=== PATIENT | female | born 1995 | race Caucasian/White ===

== ENCOUNTER → 2016-07-01 | Outpatient (CLI) | payer BC ==
--- NOTE | 2016-07-01 17:57 | US ---
July 01, [address] Dorman, Thank you for allowing us to see your patient Sneha Test for growth and completion of taz aren evaluation. As you know, she is a 20-year-old 1. Her due date is 10/19/2016 based on 13- week ultrasound. Her current gestational age based on this dating is 24 weeks 2 days. Her history i s significant for type 1 diabetes mellitus managed with an insulin pump. ULTRASOUND: Number of fetuses: 1 Placental location: anterior, no previa presentation: cephalic Heart Rate: 150 bpm Cervix: 4.2 cm viewed transabdominally Maximum vertical pocket: 6 cm Measurements: Biparietal diameter: 62 mm 25 weeks, 1 days Head circumference: 236 mm 25 weeks, 5 days Abdominal circumference: 204 mm 25 weeks, 1 days Femur length: 44 mm 24 weeks, 5 days Humerus length: 39 mm 24 weeks, 1 days Transcerebellar diameter: 29 mm 25 weeks, 2 days Average ultrasound age: 25 weeks, 2 days Estimated weight: 749 gm weight percentile: 70 % ANATOMY anatomy was previously assessed. Today the following structures were visualized and appeared n ormal: supratentorial brain, posterior fossa, cisterna magna measuring 7.7 mm, spine, profile, 4-maría mber heart view, superior and inferior vena cava, stomach, bilateral kidneys, bladder. IMPRESSION: 1. Intrauterine at 24 weeks, 2 days; KINSEY of 10/19/2016. 2. growth is appropriate size for dates. 3. anatomy was previously assessed and today's ultrasound continues to provide reassurance of normal appearing anatomy. 4. Type 1 diabetes mellitus. See previously noted recommendations for . RECOMMENDATIONS: Sneha has her echo scheduled on 08/03/16. Recommend follow-up growth ultrasound in 4 weeks. Thank you for allowing us the opportunity to evaluate your patient. Should you have any further ques tions or concerns please do not hesitate to contact me. Approximately 15 minutes were spent with the patient, of which 8 minutes were spent in [id number] c onsultation discussing diabetes in and growth and anatomy. Jessica Mobley M.D., Ph.D. Diagnosis Department of Obstetrics and Gynecology [facility] [place], [place]
--- NOTE | 2016-07-01 18:51 | US ---
Obstetrical Sonogram Detail Clinical Indications: Evaluate growth and development with comparison to the prior study May. The is complicated by insulin-dependent diabetes. Technique: Longitudinal and transverse images are obtained. Dr. Mobley was present for the examinatio n. Color Doppler evaluation is employed for assessment of vascularity. Findings: A single fetus is present in vertex presentation. Maternal cervical length is estimated at 4.2 cm. T he amount of amniotic fluid is normal with an MVP of 6.0 cm. The placenta is located anterior with no placenta previa.. A three-vessel cord has been previously documented with a central insertion on t he placenta. motion is identified. cardiac activity is documented with a heart rate estimated at 150 b eats per minute. A full anatomic scan has been performed previously. On examination today a four-anthony amandeep heart view is obtained. stomach, kidneys and bladder are normal. supratentorial brain , posterior fossa and spinal profile appear normal. No abnormality is identified. biometry: Biparietal diameter = 62 mm = 25 weeks 1 day Head circumference = 236 mm = 25 weeks 5 days Abdominal circumference = 204 mm = 25 weeks 1 day Femur length = 44 mm = 24 weeks 5 days Estimated weight 749 +/- 109 grams. This is at the 70th percentile based on last menstrual yamila od. The estimated delivery date by ultrasound is October 12, 2016. This compares to the clinical date of October. There has been appropriate interval growth. Impression: Single live intrauterine gestation with estimated age by ultrasound of 25 weeks 2 days with an estima jesu delivery date of October 12, 2016. The estimated age by clinical date is 24 weeks 2 days. No abnormality is identified. A full anatomic scan has been performed previously. Please see Dr. Mobley report for findings and recommendations.
== END ==
LOC: FIMAGING 13:33
PROVIDERS: ATTEND Student in an Organized Health Care Education/Training Program
DX: O24.012 Pre-existing type 1 diabetes mellitus, in pregnancy, second trimester (principal); E10.65 Type 1 diabetes mellitus with hyperglycemia; Z3A.25 25 weeks gestation of pregnancy

== ENCOUNTER → 2016-08-03 | Outpatient (CLI) | payer BC | LOC: FIMAGING 12:14 | PROVIDERS: ATTEND Student in an Organized Health Care Education/Training Program | DX: O24.013 Pre-existing type 1 diabetes mellitus, in pregnancy, third trimester (principal); O36.60X0 Maternal care for excessive fetal growth, unspecified trimester, not applicable or unspecified; Z3A.29 29 weeks gestation of pregnancy ==

== ENCOUNTER → 2016-08-31 | Outpatient (CLI) | payer BC | LOC: FIMAGING 12:53 | PROVIDERS: ATTEND Student in an Organized Health Care Education/Training Program | DX: O24.013 Pre-existing type 1 diabetes mellitus, in pregnancy, third trimester (principal); Z3A.33 33 weeks gestation of pregnancy; Z96.41 Presence of insulin pump (external) (internal) ==

== ENCOUNTER → 2016-09-27 | Outpatient (CLI) | payer BC | LOC: FIMAGING 12:02 | PROVIDERS: ATTEND Student in an Organized Health Care Education/Training Program | DX: O24.013 Pre-existing type 1 diabetes mellitus, in pregnancy, third trimester (principal); Z3A.36 36 weeks gestation of pregnancy ==